=== PATIENT | male | born 1960 | race Caucasian/White ===

== ENCOUNTER 2024-04-11 15:48 | Emergency (ER) | payer MEDICARE, OTHER, SELFPAY ==
[2024-04-11 15:54] VITALS: BP 181/117
[2024-04-11 17:11] VITALS: BMI 30.6
[2024-04-11 17:27] LABS: % Basophils 0.3 % (0-2); % Eosinophils 0.4 % (0-6); % Immature Granulocytes 0.3 % (0-0.5); % Lymphocytes 8.7 % (20.5-51.1); % Neutrophils 81.3 % (42.2-75.2); Absolute Eosinophils 0.1 10^3/uL (0-0.7); Absolute Immature Granulocytes 0.1 10^3/uL (0-0.05); Absolute Lymphocytes 1.4 10^3/uL (1.2-3.4); Absolute Monocytes 1.4 10^3/uL (0.1-0.6); Hematocrit 42.1 % (39.0-52.0); Mean Corp Hgb Conc. 35.6 g/dL (33.0-37.0); Mean Corpuscular Hgb 29.9 pg (27.0-31.0); Mean Platelet Volume 9.5 fL (7.4-10.4); Nucleated Red Blood Cells % 0 % (-); Platelet Count 245 10^3/uL (130-400); Red Blood Cell Count 5.01 10^6/uL (4.70-6.10); Red Cell Dist. Width 13.1 % (11.5-14.5); White Blood Cell Count 15.9 10^3/uL (4.8-10.8)
[2024-04-11 17:40] LABS: ALT (SGPT) 23 U/L (0-50); AST (SGOT) 35 U/L (17-59); Albumin 4.4 g/dl (3.5-5.0); Alkaline Phosphatase 88 U/L (38-126); Blood Urea Nitrogen 14 mg/dl (9-20); Calcium 9.7 mg/dl (8.4-10.2); Carbon Dioxide 24 mmol/L (22-30); Chloride 100 mmol/L (98-107); Estimated Creatinine Clearance > 125 ml/min; Glucose 123 mg/dl (70-99); Potassium 4.2 mmol/L (3.5-5.1); Sodium 134 mmol/L (135-145); Total Bilirubin 1.3 mg/dl (0.2-1.3); Total Protein 7.8 g/dl (6.3-8.2); eGFR > 60.00
[2024-04-11 18:00] VITALS: BP 156/98
[2024-04-11 18:06] VITALS: BP 156/98
[2024-04-11] MEDS: NSS 1000 IV (18:33)
[2024-04-11 19:16] VITALS: BP 136/95
--- NOTE | 2024-04-11 19:21 | ED.GENMED ---
History of Present Illness
<Roly Padron DO - Last Filed: 04/11/24 19:22>
General
Chief Complaint: Swelling
Time Seen by Provider: 04/11/24 16:55
Travel History
Have you had any contact with someone who has COVID-19?: No
Do you have any symptoms of coronavirus? Fever > 100 degrees, chills, cough, shortness of breath, sore throat, loss of taste or smell, muscle aches, or headache?: No
<Flor Morales NP - Last Filed: 04/11/24 19:58>
General
Source: patient
Exam Limitations: none
Nursing documentation reviewed up to this point in time: agreed with
History of Present Illness
History of Present Illness:
Patient to ED with complaint of dental pain to left lower jaw, swelling. Symptoms started last PM but have gotten progressively worse. Denies fever/chills. Brought self to eD for eval.
Past History
<Roly Padron DO - Last Filed: 04/11/24 19:22>
Past History
ED Past Medical History: None
ED Past Surgical History: None
Social History
Tobacco: Non-smoker
Alcohol: None
Drug: None
Living: with family
Review of Systems
<Flor Morales NP - Last Filed: 04/11/24 19:58>
Review of Systems
Allergies reviewed?: Yes
All Other Systems: ROS reviewed and negative except as documented in HPI and ROS
Constitutional: Reports no symptoms
EENT: Reports other (broken left lower 2nd molar.)
Respiratory: Reports no symptoms
Cardiac: Reports no symptoms
ABD/GI: Reports no symptoms
Musculoskeletal: Reports no symptoms
Skin: Reports other (swelling and redness to left lower jaw into left lateral neck)
Neurological: Reports no symptoms
Psychiatric: Reports no symptoms
Phy Exam
<Flor Morales SIDING MECHANIC - Last Filed: 04/11/24 19:58>
General Physical Exam
General Presentation: well appearing and mild distress
General age: appears stated age
General Skin: warm and dry
General Habitus: normal
General Mental: alert
ENT Exam
ENT Exam: other (Broken tooth #18. Painful. Dental block performed. No dental abscess visible at site. No trismus)
Musculoskeletal Exam
Musculoskeletal Exam: full ROM and neuro vasc intact
Skin Exam
Skin Exam: warm/dry, no rash and other (erythema and swelling to left lower jaw.)
Psychiatric Exam
Psychiatric Exam: normal mood/affect
Scores
<Flor Morales SIDING MECHANIC - Last Filed: 04/11/24 19:58>
Heart Failure Risk
Heart Failure Risk Score: Not Applicable
Course
<Roly Padron DO - Last Filed: 04/11/24 19:22>
Orders/Labs/Results
Orders:
Orders
04/11/24 17:[address] [CT Neck With Iv Contrast] Urgent
Comment:
Reason For Exam: left lower jaw/neck swelling
04/11/24 17:17
Complete Blood Count/With Diff Urgent
Comprehensive Metabolic Panel Urgent
04/11/24 18:30
0.9% Sodium Chloride 1000 ml [Nss] 1,000 ml IV BOLUS
04/11/24 19:28
Clindamycin HCl [Cleocin] 300 mg PO NOW STA
Abnormal Lab Results
04/11/24
17:17
WBC 15.9 H 10^3/uL
(4.8-10.8)
Abs Immat Gran (auto) 0.1 H 10^3/uL
(0-0.05)
Absolute Neuts (auto) 13.0 H 10^3/uL
(1.4-6.5)
Absolute Monos (auto) 1.4 H 10^3/uL
(0.1-0.6)
Neutrophils % 81.3 H %
(42.2-75.2)
Lymphocytes % 8.7 L %
(20.5-51.1)
Sodium 134 L mmol/L
(135-145)
Creatinine 0.6 L mg/dL
(0.7-1.3)
Glucose 123 H mg/dl
(70-99)
04/11/24 17:17
04/11/24 17:17
Vital Signs
Initial and Last Documented VS:
Initial Vital Signs
Temp Pulse Resp BP Pulse Ox
98.8 F 89 18 181/117 98
04/11/24 15:54 04/11/24 15:54 04/11/24 15:54 04/11/24 15:54 04/11/24 15:54
Last Documented Vital Signs
Temp Pulse Resp BP Pulse Ox
97.6 F 76 20 156/98 95
04/11/24 18:06 04/11/24 18:06 04/11/24 18:06 04/11/24 18:06 04/11/24 18:06
<Flor Morales NP - Last Filed: 04/11/24 19:58>
Orders/Labs/Results
Orders:
Orders
04/11/24 17:[address] [CT Neck With Iv Contrast] Urgent
Comment:
Reason For Exam: left lower jaw/neck swelling
04/11/24 17:17
Complete Blood Count/With Diff Urgent
Comprehensive Metabolic Panel Urgent
04/11/24 18:30
0.9% Sodium Chloride 1000 ml [Nss] 1,000 ml IV BOLUS
04/11/24 19:28
Clindamycin HCl [Cleocin] 300 mg PO NOW STA
Abnormal Lab Results
04/11/24
17:17
WBC 15.9 H 10^3/uL
(4.8-10.8)
Abs Immat Gran (auto) 0.1 H 10^3/uL
(0-0.05)
Absolute Neuts (auto) 13.0 H 10^3/uL
(1.4-6.5)
Absolute Monos (auto) 1.4 H 10^3/uL
(0.1-0.6)
Neutrophils % 81.3 H %
(42.2-75.2)
Lymphocytes % 8.7 L %
(20.5-51.1)
Sodium 134 L mmol/L
(135-145)
Creatinine 0.6 L mg/dL
(0.7-1.3)
Glucose 123 H mg/dl
(70-99)
04/11/24 17:17
04/11/24 17:17
Vital Signs
Initial and Last Documented VS:
Initial Vital Signs
Temp Pulse Resp BP Pulse Ox
98.8 F 89 18 181/117 98
04/11/24 15:54 04/11/24 15:54 04/11/24 15:54 04/11/24 15:54 04/11/24 15:54
Last Documented Vital Signs
Temp Pulse Resp BP Pulse Ox
97.6 F 76 20 156/98 95
04/11/24 18:06 04/11/24 18:06 04/11/24 18:06 04/11/24 18:06 04/11/24 18:06
Fantalt;Flor Morales NP - Last Filed: 04/11/24 19:58>
*Radiology
Radiology exam reviewed: radiology read reviewed
*Pulse Oximetry
Patient hypoxic: no
*Critical Care Note
Total Time (30-74mins, 75-104mins- exclusive of procedures): Not Applicable
<Flor Morales NP - Last Filed: 04/11/24 19:58>
Update Note
Update Note:
Ct findings discussed with patient. Clindamycin started in dept. He will be discharged home and will follow up with his dentist on Friday. given instructions on s/s to return to ED and he is agreeable to plan.
ED Attending Note
<Roly Padron DO - Last Filed: 04/11/24 19:22>
ED Attending Note
Patient seen and examined by attending physician: Yes
I performed the substantive portion of visit, reviewed & personally made and approve the management plan that is documented in note by myself or ANASTASIYA.: Yes
ED Attending Note:
Patient is a 63-year-old male who presents with swelling on the left side of his face. Patient states he has had this before. Patient believes it is from his tooth. Patient denies fever chills, change in voice or difficulty swallowing. Patient
denies shortness of breath. Patient does not smoke. On physical exam patient has swelling in the submandibular region as well as the parotid region on the left. Patient has swelling and questionable abscess in the left lower posterior molars.
Oropharynx is clear. Patient does have some adenopathy. Heart is regular lungs are clear. Patient has no cyanosis or edema. Patient's white count is elevated. Will get a CT. Anticipate the patient being able to be discharged on antibiotics.
-
Portions of this chart may have been created with voice recognition software.� Occasional wrong word or��sound alike� substitutions may have occurred due to the inherent limitations of voice recognition software.
Discharge Plan
Departure
Patient Disposition: Home (Routine Discharge)
Date of Disposition: 04/11/24
Time of Disposition: 19:29
Patient with high blood pressure during this ER visit?: No
Condition: Good
Covid-19: Not Applicable
Discharge Problem:
Pain, dental, Dental infection
Instructions: Fractured Tooth, Tooth Abscess ED
Prescriptions:
New
clindamycin HCl 300 mg capsule
300 mg PO QID Qty: 40 0RF
No Action
acetaminophen [Tylenol Extra Strength] 500 MG tablet
500 mg PO Q4HPRN PRN (Reason: pain) Qty: 1 0RF
Referrals:
UNKNOWN - PT DOES,NOT KNOW [Family Provider] -
Activity Restrictions/Additional Instructions:
Follow up with your dentist on Friday. Return to the emergency department immediately for fever/chills, increasing pain/redness/swelling, any difficulty breathing or swallowing, or for any further concerns.
Interventions
Interventions:
*Risk Screen - Suicide Last Done: 04/11/24 17:11
*General Assessment Last Done: 04/11/24 15:54
*Neglect/Abuse Screening Last Done: 04/11/24 17:11
ED- Fall Risk Assessment Last Done: 04/11/24 17:11
*ED COVID-19 Vaccine History Last Done: 04/11/24 15:54
ED- Cardiac Assessment Last Done: 04/11/24 17:11
ED- Pulmonary Assessment Last Done: 04/11/24 17:11
ED-Skin Assessment Last Done: 04/11/24 17:11
Discharge Date and Time
Print Language: [id number]
[2024-04-11] MEDS: CLEOCIN 300 MG PO (19:41)
== END 2024-04-11 19:45 | disposition home or self-care (01) ==
LOC: EMR 15:48
PROVIDERS: Nurse Practitioner; EMERGENCY PHYSICIAN Emergency Medicine
DX: K08.89 Other specified disorders of teeth and supporting structures (principal); K04.7 Periapical abscess without sinus; R22.1 Localized swelling, mass and lump, neck; S02.5XXA Fracture of tooth (traumatic), initial encounter for closed fracture; X58.XXXA Exposure to other specified factors, initial encounter
CPT/HCPCS: 99285; 64400; 96360; 70491; 80053; 85025; Q9967